=== PATIENT | female | born 1960 | race Caucasian/White ===

== ENCOUNTER → 2023-04-14 09:56 | Outpatient (REF) | payer BC, SELFPAY | LOC: HWWDC 09:56 | PROVIDERS: ATTENDING PHYSICIAN Nurse Practitioner Adult Health | DX: Z12.31 Encounter for screening mammogram for malignant neoplasm of breast (principal) | CPT/HCPCS: 77063; 77067 ==

== ENCOUNTER → 2023-05-01 09:33 | Outpatient (REF) | payer BC, SELFPAY | LOC: RCS 09:33 | PROVIDERS: ATTENDING PHYSICIAN Internal Medicine; FAMILY PHYSICIAN Nurse Practitioner Adult Health | DX: I48.0 Paroxysmal atrial fibrillation (principal); I10 Essential (primary) hypertension; E11.9 Type 2 diabetes mellitus without complications; C90.00 Multiple myeloma not having achieved remission | CPT/HCPCS: 93306; 93356 ==

== ENCOUNTER 2023-06-08 08:54 | Outpatient (RCR) | payer BC, SELFPAY | END 2023-06-08 23:59 | disposition home or self-care (01) | LOC: RPT 08:54 | PROVIDERS: ATTENDING PHYSICIAN Physician Assistant Surgical; FAMILY PHYSICIAN Nurse Practitioner Adult Health | DX: M75.41 Impingement syndrome of right shoulder (principal); M75.111 Incomplete rotator cuff tear or rupture of right shoulder, not specified as traumatic; Z73.6 Limitation of activities due to disability | CPT/HCPCS: 97010; 97110; 97112; 97140; 97162 ==

== ENCOUNTER 2023-06-15 12:05 | Outpatient (RCR) | payer BC, SELFPAY | END 2023-06-16 07:35 | disposition home or self-care (01) | LOC: RPT 12:05 | PROVIDERS: ATTENDING PHYSICIAN Physician Assistant Surgical; FAMILY PHYSICIAN Nurse Practitioner Adult Health | DX: M75.41 Impingement syndrome of right shoulder (principal); M75.111 Incomplete rotator cuff tear or rupture of right shoulder, not specified as traumatic; Z73.6 Limitation of activities due to disability | CPT/HCPCS: 97010; 97110; 97112 ==

== ENCOUNTER 2023-09-09 15:09 | Outpatient (RCR) | payer BC, SELFPAY | END 2023-09-09 23:59 | disposition home or self-care (01) | LOC: RPT 15:09 | PROVIDERS: ATTENDING PHYSICIAN Physician Assistant Surgical; FAMILY PHYSICIAN Nurse Practitioner Adult Health | DX: M25.511 Pain in right shoulder (principal); Z98.890 Other specified postprocedural states; Z73.6 Limitation of activities due to disability | CPT/HCPCS: 97010; 97110; 97140; 97162 ==

== ENCOUNTER → 2023-09-16 09:13 | Outpatient (REF) | payer BC, SELFPAY | LOC: RCS 09:13 | PROVIDERS: ATTENDING PHYSICIAN Internal Medicine; FAMILY PHYSICIAN Nurse Practitioner Adult Health; REFERRING PHYSICIAN Internal Medicine Hematology & Oncology | DX: E11.9 Type 2 diabetes mellitus without complications (principal); I10 Essential (primary) hypertension; I48.0 Paroxysmal atrial fibrillation; C90.00 Multiple myeloma not having achieved remission | CPT/HCPCS: 93306; 93356 ==

== ENCOUNTER 2023-10-07 15:17 | Outpatient (RCR) | payer BC, SELFPAY | END 2023-10-07 23:59 | disposition home or self-care (01) | LOC: RPT 15:17 | PROVIDERS: ATTENDING PHYSICIAN Physician Assistant Surgical; FAMILY PHYSICIAN Nurse Practitioner Adult Health | DX: M25.511 Pain in right shoulder (principal); Z98.890 Other specified postprocedural states; Z73.6 Limitation of activities due to disability | CPT/HCPCS: 97010; 97110; 97112; 97140 ==

== ENCOUNTER → 2023-11-26 15:26 | Outpatient (REF) | payer BC, SELFPAY | LOC: RAD 15:26 | PROVIDERS: ATTENDING PHYSICIAN Internal Medicine Critical Care Medicine; FAMILY PHYSICIAN Nurse Practitioner Adult Health | DX: R06.02 Shortness of breath (principal) | CPT/HCPCS: 71046 ==

== ENCOUNTER 2024-01-01 14:57 | Outpatient (RCR) | payer BC, SELFPAY | END 2024-01-01 23:59 | disposition home or self-care (01) | LOC: RPT 14:57 | PROVIDERS: ATTENDING PHYSICIAN Urology; FAMILY PHYSICIAN Nurse Practitioner Adult Health | DX: N39.46 Mixed incontinence (principal); R53.0 Neoplastic (malignant) related fatigue; M62.81 Muscle weakness (generalized); Z73.6 Limitation of activities due to disability | CPT/HCPCS: 97110; 97112; 97140; 97163; 97530 ==

== ENCOUNTER 2024-02-09 11:00 | Outpatient (RCR) | payer BC, SELFPAY | END 2024-02-09 23:59 | disposition home or self-care (01) | LOC: RPT 11:00 | PROVIDERS: ATTENDING PHYSICIAN Urology; FAMILY PHYSICIAN Nurse Practitioner Adult Health | DX: N39.3 Stress incontinence (female) (male) (principal); N39.46 Mixed incontinence (principal); N39.41 Urge incontinence; R53.0 Neoplastic (malignant) related fatigue; M62.81 Muscle weakness (generalized); Z73.6 Limitation of activities due to disability | CPT/HCPCS: 97014; 97110; 97112; 97140; 97530 ==

== ENCOUNTER → 2024-02-26 07:21 | Outpatient (REF) | payer BC, SELFPAY | LOC: RAD 07:21 | PROVIDERS: FAMILY PHYSICIAN Nurse Practitioner Adult Health | DX: M79.662 Pain in left lower leg (principal); M79.89 Other specified soft tissue disorders | CPT/HCPCS: 93971 ==

== ENCOUNTER 2024-03-08 12:02 | Outpatient (RCR) | payer BC, SELFPAY | END 2024-03-08 23:59 | disposition home or self-care (01) | LOC: RPT 12:02 | PROVIDERS: ATTENDING PHYSICIAN Urology; FAMILY PHYSICIAN Nurse Practitioner Adult Health | DX: N39.3 Stress incontinence (female) (male) (principal); N39.41 Urge incontinence; R53.0 Neoplastic (malignant) related fatigue; M62.81 Muscle weakness (generalized); Z73.6 Limitation of activities due to disability; N39.46 Mixed incontinence | CPT/HCPCS: 97014; 97110; 97112; 97530 ==

== ENCOUNTER → 2024-06-20 14:36 | Outpatient (REF) | payer BC, SELFPAY | LOC: HWWDC 14:36 | PROVIDERS: ATTENDING PHYSICIAN Physician Assistant Medical | DX: Z12.31 Encounter for screening mammogram for malignant neoplasm of breast (principal) | CPT/HCPCS: 77063; 77067 ==

== ENCOUNTER → 2024-07-20 09:12 | Outpatient (REF) | payer BC, SELFPAY | LOC: RCS 09:12 | PROVIDERS: ATTENDING PHYSICIAN Internal Medicine; FAMILY PHYSICIAN Physician Assistant Medical | DX: I48.0 Paroxysmal atrial fibrillation (principal); I10 Essential (primary) hypertension; E78.01 Familial hypercholesterolemia; C90.00 Multiple myeloma not having achieved remission | CPT/HCPCS: 93306 ==